=== PATIENT | female | born 1950 | race Caucasian/White ===

== ENCOUNTER 2021-03-23 20:17 | Emergency (ER) | payer MEDICARE ==
[~2021-03-23] VITALS: Ht 160 cm; Wt 92.3 kg
[2021-03-24 03:25] VITALS: BP 157/134
[2021-03-24] MEDS ORDERED: cyclobenzaprine 10mg tablet PO ONE (03:45)
[2021-03-24] MEDS ORDERED: diazepam 5mg tablet PO ONE (03:50)
== END 2021-03-24 04:45 | disposition home or self-care (01) ==
LOC: ER 20:18
DX: M54.9 Dorsalgia, unspecified (principal); M48.00 Spinal stenosis, site unspecified; R20.0 Anesthesia of skin; M25.552 Pain in left hip; E78.00 Pure hypercholesterolemia, unspecified; E11.9 Type 2 diabetes mellitus without complications; Z86.73 Personal history of transient ischemic attack (TIA), and cerebral infarction without residual deficits; Z90.89 Acquired absence of other organs; Z90.710 Acquired absence of both cervix and uterus; Z88.2 Allergy status to sulfonamides; Z88.8 Allergy status to other drugs, medicaments and biological substances
CPT/HCPCS: 72192; 99284

== ENCOUNTER 2023-01-06 05:00 | Emergency (ER) | payer MEDICARE ==
[~2023-01-06] VITALS: Ht 160 cm; Wt 77.3 kg
[~2023-01-06 05:00] MED LIST: ALBU90AE INH; AMI200T PO; CITA20TA26 PO; CLOP75TA34 PO; GABA300C PO; LISI20TA28 PO; METO-395 PO; WARF1TAB83 PO
[2023-01-06] MEDS ORDERED: CefTRIAXone/D5W-Rocephin 1gm 50 ML IV ONE (06:05)
[2023-01-06] MEDS ORDERED: azithromycin/NS 500mg/250ml 250 ML IV ONE (06:05)
[2023-01-06 06:07] VITALS: TEMP 95.6
[2023-01-06 06:08] VITALS: O2SAT 94
--- NOTE | 2023-01-06 06:09 | NUR ---
presley updated on rectal temp 95.6, morenita moya initiated to warm pt.
[2023-01-06 06:30] LABS: BASOPHILS % (AUTO) 0.4 % (0-1); EOSINOPHILS % (AUTO) 0 % (0-6); HEMATOCRIT 25.6 % (35.0-45.0); HEMOGLOBIN 7.5 g/dl (12.0-16.0); LYMPHOCYTES # (AUTO) 0.9 X10'3 (1.1-4.8); LYMPHOCYTES % (AUTO) 8.3 % (21-51); MEAN CORPUSCULAR HEMOGLOBIN 25.9 PG (27.0-31.0); MEAN CORPUSCULAR HGB CONC 29.2 g/dL (33.0-36.5); MEAN CORPUSCULAR VOLUME 88.7 FL (78-98); MONOCYTES # (AUTO) 0.7 X10'3 (0-0.9); MONOCYTES % (AUTO) 6.6 % (2-12); NEUTROPHILS # (AUTO) 9.2 X10'3 (1.8-7.7); NEUTROPHILS % (AUTO) 84.7 % (42-75); PLATELET COUNT 307 X10'3 (140-440); RED BLOOD COUNT 2.89 X10'6 (4.20-5.60); RED CELL DISTRIBUTION WIDTH 31.4 % (11.5-14.5); WHITE BLOOD COUNT 10.9 X10'3 (4.5-11.0)
[2023-01-06 06:32] LABS: CLARITY,URINE TURBID (Clear); COLOR,URINE AMBER (Yellow)
[2023-01-06 06:37] LABS: UA COLLECTION TYPE STRAIGHT CATH
[2023-01-06 06:39] LABS: BACTERIA,URINE 1+ /HPF (Neg); MUCUS STRANDS NONE SEEN /LPF (Neg); SQUAMOUS EPITHELIAL CELL,UR MODERATE /LPF (FEW); TRANSITIONAL EPI CELLS,URINE FEW /HPF; WBC CLUMPS,URINE MODERATE /HPF (NEGATIVE); WBC,URINE TNTC /HPF (0-4)
[2023-01-06 06:40] LABS: YEAST MODERATE /HPF (NEGATIVE)
[2023-01-06 06:48] LABS: ALANINE AMINOTRANSFERASE 66 U/L (12-78); ALBUMIN 3.1 G/DL (3.4-5.0); ALBUMIN/GLOBULIN RATIO 0.8 (1.1-1.5); ALKALINE PHOSPHATASE 195 IU/L (46-116); ANION GAP 18 (8-16); ASPARTATE AMINO TRANSFERASE 59 U/L (10-37); BILIRUBIN,TOTAL 3.8 MG/DL (0.1-1.0); BLOOD UREA NITROGEN 52 MG/DL (7-18); BUN/CREATININE RATIO 18.4 (10.0-20.0); CALCIUM 9.9 MG/DL (8.5-10.1); CHLORIDE 94 MMOL/L (99-107); CREATININE 2.82 MG/DL (0.40-0.90); GLUCOSE 138 MG/DL (70-104); POTASSIUM 5.6 MMOL/L (3.5-5.1); SODIUM 135 MMOL/L (135-145); TOTAL CARBON DIOXIDE 22.6 MMOL/L (24-32); TOTAL PROTEIN 6.8 G/DL (6.4-8.2); eCRCL 15 ML/MIN; eGFR 17 ML/MIN
--- NOTE | 2023-01-06 06:51 | NUR ---
Temp aragon inserted, no urine output noted during insertion, had difficulty placing one. Per assistant casino shift manager, patient was just straight cath this am. Will wait for urine flow, if none noted, will reattempt insertion
[2023-01-06 06:53] LABS: PLATELET ESTIMATE NORMAL
[2023-01-06 06:54] LABS: HYPOCHROMASIA 1+; POLYCHROMASIA 2+
[2023-01-06 06:55] LABS: ANISOCYTOSIS 3+; ELLIPTOCYTES FEW; ROULEAUX 1+; TARGET CELLS 1+; TEAR DROP CELLS FEW
[2023-01-06 07:32] VITALS: BP 112/54; RESP 18
[2023-01-06 07:53] VITALS: PULSE 0
--- NOTE | 2023-01-06 07:55 | NUR ---
Teresa mckinley in EDM - 01/06/23 at 0802 by KILO Patient become less responsive to command, agonal breathing. HR 34 on the monitor on paced rhythm. She then become unresponsive to any stimulation. I called my charge nurse Bee to let her know about this and showed her the POLST form said she was DNR comfort care
--- NOTE | 2023-01-06 08:01 | NUR ---
Late entry: Dr. Banda came to see patient, he pronounced patient at 07:54 am
--- NOTE | 2023-01-06 08:27 | NUR ---
Spoke to Chief Embalmer Deputy Panda to report the . After answering her questions, she did eventually told me that its okay to release the body to the mortuary
--- NOTE | 2023-01-06 08:40 | NUR ---
TC TO PHONE WITH NO ANSWER. TC TO SON, TRAVIS DUNHAM AND HE WAS INFORMED OF EXPIRATION. FAMILY WILL BE ARRIVING THIS MORNING TO SEE PATIENT AND CHOOSE MORTUARY FOR POST MORTEM CARE. TRAVIS WILL CONTACT HIS FATHER TO INFORM HIM OF REBEKAH'S EXPIRATION.
--- NOTE | 2023-01-06 08:51 | NUR ---
Spoke to Maddi from [facility] (Reference # [id number]). After answering all her questions she did told me that patient may be suitable for tissue donation and that I will get a phone call from [facility] within 1 hr. She advised me to call back if I did not get a phone call.
--- NOTE | 2023-01-06 09:06 | NUR ---
Received a phone call from You (calling from [facility]). I answered his questions and he told me that they are closing the case and will be okay for release
--- NOTE | 2023-01-06 09:51 | NUR ---
TC TO [facility] TO INFORM OF RESIDENT'S EXPIRATION. SPOKE WITH NURSE, ANTONIO. FACILITY WILL GATHER REBEKAH'S BELONGINGS FOR FAMILY TO TRUCK AND TRANSPORT MECHANIC. , VENITA HERE AT THE BEDSIDE AND IS AWAITING HIS SONS' ARRIVAL BEFORE CHOOSING MORTUARY ARRANGEMENTS.
--- NOTE | 2023-01-06 12:00 | NUR ---
AND 2 SONS AT THE BEDSIDE. FAMILY REQUESTS MORTUARY SERVICES PER VARGAS MARTINEZ.
--- NOTE | 2023-01-06 13:11 | NUR ---
TC TO [facility] ([place]) TO SENIOR QC TECHNICIAN PATIENT FOR MORTUARY CARE, PER FAMILY REQUEST.
== END 2023-01-06 14:12 ==
LOC: ER 05:01
DX: I46.9 Cardiac arrest, cause unspecified (principal); R65.20 Severe sepsis without septic shock; J18.8 Other pneumonia, unspecified organism; J90 Pleural effusion, not elsewhere classified; E78.00 Pure hypercholesterolemia, unspecified; I50.9 Heart failure, unspecified; Z88.2 Allergy status to sulfonamides; Z88.6 Allergy status to analgesic agent; Z79.899 Other long term (current) drug therapy; Z98.890 Other specified postprocedural states; Z90.710 Acquired absence of both cervix and uterus
CPT/HCPCS: 36415; 71045; 80053; 81001; 83605; 83880; 84145; 84484; 85008; 85025; 87040; 87077; 87088; 93005; 96365; 96368; 99285; J0456; J0696; C1758